=== PATIENT | female | born 1985 ===

== ENCOUNTER 2019-05-18 18:17 | Emergency (ER) | payer OTHER ==
[~2019-05-18] VITALS: Ht 147.3 cm; Wt 60.7 kg
[2019-05-18 18:20] VITALS: BP 134/95
--- NOTE | 2019-05-18 18:32 | NUR ---
Patient/Caregiver given discharge instructions and they have confirmed that they understand the instructions. Patient ambulatory with steady gait.
== END 2019-05-18 18:34 | disposition home or self-care (01) ==
LOC: ED 18:20
DX: J06.9 Acute upper respiratory infection, unspecified (principal)
CPT/HCPCS: 99281